=== PATIENT | female | born 1990 | race Caucasian/White ===

== ENCOUNTER 2018-11-15 22:32 | Emergency (ER) | payer SELFPAY ==
[~2018-11-15] VITALS: Ht 165.1 cm; Wt 68.0 kg
[~2018-11-15 22:32] MED LIST: AMOX-430 PO; HYDR-4354 PO
--- NOTE | 2018-11-15 22:59 | NUR ---
Pt is AAOx4, speaking in complete sentences, speech is clear. Able to follow /comprehend directions. Gait is stable. No cardiovascular distress noted. Rate/rhythm regular. No CP. No respiratory distress noted. Respirations even , unlabored, symmetrical chest rise. No adventitious sounds noted. Chief complaint: Pt c/o L lateral Rib pain 7/10 radiating towards L hip since 11/12/2018.Patient endorses ground levle fall during which she struch her L torso on a hard object. Pain gets worse upon ambulation, and palpation, +guarding and restlesness, - bruising to the site, denies hitting head, No LOC, took voltaren 50mg x1 last wednesday without relief. Denies NVD/Fever/Chills. No recent travel. No pertinent medical history/NKDA, ETOH last weekend 3beers/ denies recreational drug use/ +nicotine vape per day. Patient in bed, bed in lowest position. Siderails up x 2. Call light within reach. Will continue to monitor accordingly
--- NOTE | 2018-11-15 23:25 | NUR ---
Note kaliacitlalli in EDM - 11/15/18 at 2328 by ENRIQUETA dcPatient discharged to home in stable conditon. Written and verbal after care instructions given. Patient verbalizes understanding of instructions. Ambulated from ER with stable gait. All belongings with patient. Dressing applied to area of insertion for paracentesis. No bleeding at site. Covered with dry dressing/tegaderm and iodine for infection control measures.
[2018-11-15 23:43] LABS: *BILIRUBIN,URIN NEGATIVE (NEGATIVE); *BLOOD, URINE NEGATIVE (NEGATIVE); *CLARITY,URINE CLEAR (CLEAR); *COLOR,URINE YELLOW (YELLOW); *KETONES,URINE TRACE (NEGATIVE); *UROBILINOGEN,URINE 0.2 E.U./dl (NORMAL); LEUKOCYTE ESTERASE ,URINE NEGATIVE (NEGATIVE); NITRITE, URINE NEGATIVE (NEGATIVE); UGLUCOSE NEGATIVE (NEGATIVE)
[2018-11-15 23:58] LABS: *URINE HCG, QUAL NEGATIVE (NEGATIVE)
--- NOTE | 2018-11-16 00:13 | NUR ---
Pt currently at CT, NAD
--- NOTE | 2018-11-16 00:20 | NUR ---
Pt back from CT via wheelchair accompanied by tech. PEREZ
[2018-11-16] MEDS: OXYCODONE/APAP 5-325 MG TABLET PO ONE (01:03)
--- NOTE | 2018-11-16 01:04 | NUR ---
Patient discharged to home in stable conditon. Written and verbal after care instructions given. Patient verbalizes understanding of instructions. Ambulated from ER with stable gait. All belongings with patient.
[2018-11-16 01:05] VITALS: BP 118/78
[2018-11-16] MEDS ORDERED: OXYCODONE/APAP 5-325 MG TABLET ONE (01:05)
== END 2018-11-16 01:08 | disposition home or self-care (01) ==
LOC: ER 22:32
DX: S29.9XXA Unspecified injury of thorax, initial encounter (principal); J45.909 Unspecified asthma, uncomplicated; F41.9 Anxiety disorder, unspecified; F17.200 Nicotine dependence, unspecified, uncomplicated; Z79.2 Long term (current) use of antibiotics; Z79.899 Other long term (current) drug therapy; W01.198A Fall on same level from slipping, tripping and stumbling with subsequent striking against other object, initial encounter; Y93.89 Activity, other specified; Y92.89 Other specified places as the place of occurrence of the external cause; Y99.8 Other external cause status
CPT/HCPCS: 71250; 84703; A4663

== ENCOUNTER 2020-01-03 16:02 | Emergency (ER) | payer MEDICAID ==
[~2020-01-03] VITALS: Ht 162.6 cm; Wt 65.8 kg
--- NOTE | 2020-01-03 16:14 | NUR ---
Dr Valladares at the bedside for MSE.
[2020-01-03 17:08] VITALS: BP 131/73
--- NOTE | 2020-01-03 17:14 | NUR ---
Patient discharged to home in stable condition. Written and verbal after care instructions given. Patient verbalizes understanding of instructions. Stressed follow up or return to ER for worsening s/s.
== END 2020-01-03 17:14 | disposition home or self-care (01) ==
LOC: ER 16:04
DX: S93.402A Sprain of unspecified ligament of left ankle, initial encounter (principal); S93.401A Sprain of unspecified ligament of right ankle, initial encounter; X50.1XXA Overexertion from prolonged static or awkward postures, initial encounter; Y92.89 Other specified places as the place of occurrence of the external cause; Z82.49 Family history of ischemic heart disease and other diseases of the circulatory system; Z80.3 Family history of malignant neoplasm of breast; Z80.1 Family history of malignant neoplasm of trachea, bronchus and lung; J45.909 Unspecified asthma, uncomplicated
CPT/HCPCS: 73610; A4663

== ENCOUNTER 2020-06-24 15:59 | Emergency (ER) | payer MEDICAID ==
[~2020-06-24] VITALS: Ht 162.6 cm; Wt 65.8 kg
[2020-06-24 17:43] LABS: BASOPHILS # (AUTO) 0.1 K/uL (0.0-8.0); BASOPHILS % (AUTO) 0.9 % (0.0-2.0); EOSINOPHILS # (AUTO) 0.4 K/uL (0.0-0.7); EOSINOPHILS % (AUTO) 5.2 % (0.0-7.0); HEMATOCRIT 40.3 % (31.2-41.9); HEMOGLOBIN 13.6 g/dL (10.9-14.3); LYMPHOCYTES # (AUTO) 2.1 K/uL (20.0-40.0); LYMPHOCYTES % (AUTO) 27.7 % (20.5-51.5); MEAN CORPUSCULAR HEMOGLOBIN 30.9 uug (24.7-32.8); MEAN CORPUSCULAR HGB CONC 34 g/dL (32.3-35.6); MEAN CORPUSCULAR VOLUME 91.3 fL (75.5-95.3); MONOCYTES # (AUTO) 0.6 K/uL (2.0-10.0); MONOCYTES % (AUTO) 7.4 % (0.0-11.0); NEUTROPHILS # (AUTO) 4.5 K/uL (1.8-8.9); NEUTROPHILS % (AUTO) 58.8 % (38.5-71.5); PLATELET COUNT (AUTO) 192 K/uL (179-408); RED BLOOD CELL COUNT(AUTO) 4.41 MIL/uL (3.63-4.92); WHITE BLOOD COUNT (AUTO) 7.6 K/uL (3.8-11.8)
[2020-06-24 17:53] LABS: CARBON DIOXIDE 24 mmol/L (21-32); CHLORIDE 103 mmol/L (98-107); CREATININE 0.9 mg/dL (0.6-1.3); GLUCOSE 88 mg/dL (74-106); UREA NITROGEN, BLOOD 8 mg/dL (7-18)
[2020-06-24 17:56] LABS: ETHANOL < 3 MG/DL (0-0)
[2020-06-24 17:59] LABS: ALANINE AMINOTRANSFERASE 21 U/L (14-59); ALKALINE PHOSPHATASE 68 U/L (50-136); ASPARTATE AMINOTRANSFERASE 21 U/L (15-37); BILIRUBIN,DIRECT 0.2 mg/dL (0.0-0.2); BILIRUBIN,TOTAL 0.7 mg/dL (0.2-1.0); TOTAL PROTEIN, SERUM 7.3 g/dL (6.4-8.2)
[2020-06-24 18:01] LABS: ACETAMINOPHEN < 2.0 ug/mL (10-30)
[2020-06-24 18:02] LABS: *URINE HCG, QUAL NEGATIVE (NEGATIVE)
[2020-06-24 18:03] LABS: *BILIRUBIN,URIN NEGATIVE (NEGATIVE); *BLOOD, URINE NEGATIVE (NEGATIVE); *CLARITY,URINE CLEAR (CLEAR); *COLOR,URINE YELLOW (YELLOW); *KETONES,URINE 1+ (NEGATIVE); *UROBILINOGEN,URINE 0.2 E.U./dl (NORMAL); LEUKOCYTE ESTERASE ,URINE NEGATIVE (NEGATIVE); NITRITE, URINE NEGATIVE (NEGATIVE); PH,URINE 7.5 (5.0-8.0); UGLUCOSE NEGATIVE (NEGATIVE)
[2020-06-24 18:13] LABS: *AMPHETAMINE, URINE NEGATIVE (NEGATIVE); *CANNABINOID, URINE POSITIVE (NEGATIVE); *COCCAINE, URINE NEGATIVE (NEGATIVE); *OPIATE, URINE NEGATIVE (NEGATIVE); *PHENCYCLIDINE SCREEN,URINE NEGATIVE (NEGATIVE)
[2020-06-24 18:21] LABS: BACTERIA,URINE NONE SEEN /HPF (NONE SEEN); RBC,URINE 0-3 /HPF (0-3); SQUAMOUS EPITHELIAL CELL,UR FEW /HPF (NONE SEEN); WBC,URINE 0-3 /HPF (0-3)
--- NOTE | 2020-06-24 19:15 | NUR ---
called [facility] for psych eval per Dr. Cervantes.
--- NOTE | 2020-06-24 19:35 | NUR ---
[facility] ETA: 1 hour
[2020-06-24] MEDS ORDERED: LORAZEPAM 0.5 MG TABLET PO ONE (19:45)
[2020-06-24] MEDS ORDERED: LORAZEPAM 0.5 MG TABLET ONE (19:51)
--- NOTE | 2020-06-24 20:04 | NUR ---
[facility] at bedside for evaluation
[2020-06-24 20:57] VITALS: BP 138/78
== END 2020-06-24 20:59 | disposition home or self-care (01) ==
LOC: ER 15:59
DX: F31.9 Bipolar disorder, unspecified (principal); Z91.5 Personal history of self-harm; J45.909 Unspecified asthma, uncomplicated; F41.9 Anxiety disorder, unspecified; Z82.49 Family history of ischemic heart disease and other diseases of the circulatory system; Z80.3 Family history of malignant neoplasm of breast; Z80.1 Family history of malignant neoplasm of trachea, bronchus and lung
CPT/HCPCS: 36415; 84703; 85025; A4663; G0480

== ENCOUNTER 2020-08-25 15:52 | Emergency (ER) | payer MEDICAID ==
[~2020-08-25] VITALS: Ht 162.6 cm; Wt 65.8 kg
[2020-08-25] MEDS ORDERED: CLON0.5T4 PO (17:12)
[2020-08-25] MEDS ORDERED: GABA-532 PO (17:12)
--- NOTE | 2020-08-25 17:22 | NUR ---
Patient discharged to home in stable condition. Written and verbal after care instructions given. Patient verbalizes understanding of instructions. Stressed follow up or return to ER for worsening s/s.PT WALKS I NSTEADY GAIT. PT UNDERSTNADSS THAT NEEDS TO FOLLOW UP WITH PSYCHIATRIST.
== END 2020-08-25 17:24 | disposition home or self-care (01) ==
LOC: ER 15:52
DX: F31.9 Bipolar disorder, unspecified (principal); J45.909 Unspecified asthma, uncomplicated; Z80.3 Family history of malignant neoplasm of breast; Z80.1 Family history of malignant neoplasm of trachea, bronchus and lung; Z82.49 Family history of ischemic heart disease and other diseases of the circulatory system; F41.9 Anxiety disorder, unspecified
CPT/HCPCS: A4663